=== PATIENT | female | born 1965 ===

== ENCOUNTER 2017-07-30 05:50 | Day surgery (SDC) | payer OTHER | END 2017-07-30 11:00 | disposition home or self-care (01) | LOC: CIR.AMB 05:50 | DX: N84.0 Polyp of corpus uteri (principal); D25.9 Leiomyoma of uterus, unspecified ==

== ENCOUNTER 2017-09-09 13:01 | Outpatient (CLI) | payer OTHER | END 2017-09-09 13:08 | disposition home or self-care (01) | LOC: MAMO-SONO 13:01 | DX: Z12.31 Encounter for screening mammogram for malignant neoplasm of breast (principal); N64.89 Other specified disorders of breast; N64.4 Mastodynia; N60.11 Diffuse cystic mastopathy of right breast ==